=== PATIENT | female | born 1945 | race Caucasian/White ===

== ENCOUNTER 2017-08-11 15:05 | Emergency (ER) | payer OTHER ==
[2017-08-11 15:15] VITALS: BP 223/72; PULSE 80; RESP 20; TEMP 98.1; O2SAT 96
[2017-08-11] MEDS ORDERED: UNKNOWN BP MEDS (15:30)
--- NOTE | 2017-08-11 15:53 | PD ---
HPI Chief Complaint: Fall Time Seen by Provider: 15:40 Travel History International Travel<30 days: No Contact w/Intl Traveler<30days: No Traveled to known affect area: No History of Present Illness HPI This is a 72-year-old female here with multiple injuries after she fell from approximately 3 feet height from her trailer. She reports construction workers moved her front door steps several feet away from her front door. When she attempted to walk outside she fell in the space between the trailer and the steps. She reports she landed onto the steps injuring the left hip, pelvic region, left elbow. There was no loss of consciousness. She is on Plavix. She denies headache, visual changes, neck pain, chest pain, shortness of breath. No paresthesia or weakness of the extremities. Symptom severity is moderate. Exacerbated by weightbearing and range of motion. PFSH Past Medical History Diminished Hearing: No Hypertension: Yes Immunizations Current: No Tetanus Vaccination: > 5 Years Influenza Vaccination: No ?: Not Past Surgical History Abdominal Surgery: Yes (AORTIC ANEURYSM REPAIR ) Cholecystectomy: Yes Hysterectomy: Yes Social History Alcohol Use: No Tobacco Use: No Substance Use: No Allergies-Medications (Allergen,Severity, Reaction): Coded Allergies: Iodinated Contrast- Oral and IV Dye (Verified Allergy, Intermediate, Rash , 08/11/17) codeine (Verified Allergy, Unknown, 08/11/17) Reported Meds & Prescriptions Reported Meds & Active Scripts Active Reported [Unknown Bp Meds] Review of Systems Except as stated in HPI: all other systems reviewed are Neg General / Constitutional: No: Fever Eyes: No: Visual changes HENT: No: Headaches Cardiovascular: No: Chest Pain or Discomfort Respiratory: No: Shortness of Breath Gastrointestinal: No: Abdominal Pain Genitourinary: No: Dysuria Physical Exam Narrative GENERAL: Alert and well-appearing 72-year-old female. Mild distress SKIN: Warm and dry. Ecchymosis and abrasions noted to left lateral hip. HEAD: Atraumatic. Normocephalic. EYES: Pupils equal and round. EOMs intact. No injection or drainage. ENT: No facial trauma. No nasal bleeding or discharge. Mucous membranes pink and moist. NECK: Trachea midline. No cervical midline tenderness. CARDIOVASCULAR: Regular rate and rhythm. No chest wall tenderness. RESPIRATORY: No accessory muscle use. Clear to auscultation. Breath sounds equal bilaterally. Even and equal chest rise. GASTROINTESTINAL: abdomen soft, nondistended/obese abdomen. +TTP bilateral upper quadrants. MUSCULOSKELETAL: Extremities without clubbing, cyanosis, or edema. No obvious deformities. Left upper extremity: +TTP over lateral elbow with ecchymosis and abrasions present. No obvious deformity. Palpable brachial and radial pulse. Full range of motion of the shoulder, wrist and all fingers. Limited range of motion of the elbow due to pain. Normal sensation. Brisk cap refill. Pelvis is stable. Left lower extremity:+TTP left lateral hip with overlying ecchymosis and abrasions. She has pain with hip flexion and external rotation. Normal sensation distally. Palpable DP pulses bilaterally. Brisk cap refill. NEUROLOGICAL: Awake and alert. No obvious cranial nerve deficits. Motor grossly within normal limits. Five out of 5 muscle strength in the arms and legs. Normal speech. BACK: No CVA tenderness. +TTP lumbar spine. PSYCHIATRIC: Appropriate mood and affect; insight and judgment normal. Data Data Last Documented VS Vital Signs Date Time Temp Pulse Resp B/P (MAP) Pulse Ox O2 Delivery O2 Flow Rate FiO2 08/11/17 15:15 98.1 80 20 223/72 (122) [address] Abd/Pel W/O Iv Contrast (08/11/17 15:33) Ct Brain W/O Iv Contrast(Rout) (08/11/17 15:33) Ct Cerv Spine W/O Contrast (08/11/17 15:33) Ct Lumb Spine W/O Contrast (08/11/17 15:33) Elbow, Complete (4 Vws) (08/11/17 ) Oxycodone-Acetamin 5-325 Mg (Percocet (08/11/17 16:30) MDM Medical Decision Making Medical Screen Exam Complete: Yes Emergency Medical Condition: Yes Differential Diagnosis Hip fracture, pelvic fracture, lumbar spine fracture, intra-abdominal trauma, contusions, inguinal strain Narrative Course 72-year-old female here with multiple injuries after she fell from approximately 3 feet. She has a normal neurologic exam. Her extremities are neurovascularly intact. CT the brain: No intracranial abnormality CT cervical spine: No fracture CT abdomen pelvis: Negative trauma study X-ray left elbow: Negative for fracture All findings were discussed with patient and family. She reports symptom improvement after Percocet. Strict return precautions were discussed. Patient was noted to be hypertensive on arrival with a blood pressure of 122/74, she reports she takes clonidine for her blood pressure and did not take her dose this morning. She is denying any headache, visual changes, chest pain, shortness of breath. She declines a dose of clonidine here. She reports she would like to take her blood pressure medication when she gets home. she is stable and ready for discharge. Diagnosis Primary Impression: Multiple contusions Additional Impression: Lumbar strain Qualified Codes: S39.012A - Strain of muscle, fascia and tendon of lower back , initial encounter Referrals: Primary Care Physician Additional Instructions: Medication as directed. Follow-up with your primary doctor. Return to emergency department if you develop new or worsening symptoms as discussed. Scripts Oxycodone-Acetaminophen (Percocet) 5-325 mg Tab 1 TAB PO Q6H Y for PAIN, #12 TAB 0 Refills Prov: Berta Herrmann 08/11/17 Disposition: 01 DISCHARGE HOME Condition: Stable Berta Herrmann August 11, 2017 15:53
--- NOTE | 2017-08-11 16:03 | RADRPT ---
EXAM DATE: 08/11/2017 3:52 PM EDT AGE/SEX: 72 years / Female INDICATIONS: Left elbow pain post fall today CLINICAL DATA: This is the patient's initial encounter. Patient reports that signs and symptoms have been present for 1 day and indicates a pain score of 6/10. MEDICAL/SURGICAL HISTORY: None. None. COMPARISON: No prior [place] exams available for comparison. FINDINGS: Bony structures are intact and in normal alignment. Joints are intact without dislocation or signifi cant arthropathy. Osseous density is normal. Soft tissues are unremarkable. No radiopaque foreign bodies seen. CONCLUSION: Negative trauma study. Electronically signed by: Leo Pickett MD 08/11/2017 4:02 PM EDT
--- NOTE | 2017-08-11 16:11 | PD ---
Data Data Last Documented VS Vital Signs Date Time Temp Pulse Resp B/P (MAP) Pulse Ox O2 Delivery O2 Flow Rate FiO2 08/11/17 18:07 71 17 218/94 (135) 95 Room Air 08/11/17 15:[address] Abd/Pel W/O Iv Contrast (08/11/17 15:33) Ct Brain W/O Iv Contrast(Rout) (08/11/17 15:33) Ct Cerv Spine W/O Contrast (08/11/17 15:33) Ct Lumb Spine W/O Contrast (08/11/17 15:33) Elbow, Complete (4 Vws) (08/11/17 ) Oxycodone-Acetamin 5-325 Mg (Percocet (08/11/17 16:30) MDM Supervised Visit with ROBIN: Yes Narrative Course I, Dr. Kuo, have reviewed the advance practice practitioner's documentation and am in agreement, met with the patient face to face, made the diagnosis, and the medical decision making was done by me. *My assessment and Findings: Patient seen and examined by me in addition to Berta Herrmann, patient does have some bruising over the left hip but no bruising of the abdomen or chest. She presents with bruising over the left hip after a fall about 3 feet from her double wide trailer. States somebody had moved the stairs out of the way in preparation for construction and she did not realize. CT scans have been ordered but her abdomen and chest are benign, she has been ambulatory since the event but states that her right foot had actually remained in the double wide and she did split on her way to the ground and also impact her left elbow. I have ordered Percocet for the patient, anticipate discharge home after imaging obtained. Last 24 [address] Impressions Lum[address] Spine [address] 08/11/17 153 Signed Impressions: CONCLUSION: 1. Negative trauma study. Head CT 08/11/171532 Signed Impressions: CONCLUSION: 1. Negative trauma CT Cervical Spine CT 08/11/171532 Signed Impressions: CONCLUSION: 1. Negative trauma CT. Abdomen/Pelvis CT 08/11/171532 Signed Impressions: CONCLUSION: 1. No evidence of acute visceral injury on this noncontrast study. 2. The bony structures appear intact. 3. Gastric band device in place. 4. Prominent left collecting system similar in appearance to the prior study. Elbow X-Ray 08/11/17 0000 Signed Impressions: CONCLUSION: Negative trauma study. Scripts Oxycodone-Acetaminophen (Percocet) 5-325 mg Tab 1 TAB PO Q6H Y for PAIN, #12 TAB 0 Refills Prov: Berta Herrmann 08/11/17 Maldonado Kuo MD August 11, 2017 16:11
--- NOTE | 2017-08-11 16:18 | RADRPT ---
EXAM DATE: 08/11/2017 4:05 PM EDT AGE/SEX: 72 years / Female INDICATIONS: Trauma, fall. CLINICAL DATA: This is the patient's initial encounter. Patient reports that signs and symptoms have been present for 1 day and indicates a pain score of 8/10. MEDICAL/SURGICAL HISTORY: Hypertension. Aneurysm, abdominal. Abdominal aortic aneurysm repair. Hy sterectomy. Cholecystectomy. RADIATION DOSE: 62.64 CTDI (mGy) ; Patient motion COMPARISON: No prior [place] exams available for comparison. TECHNIQUE: CT of the head without contrast. Using automated exposure control and adjustment of the mA and/or kV according to patient size, radiation dose was kept as low as reasonably achievable to ob tain optimal diagnostic quality images. FINDINGS: There is mild motion artifact. Cerebrum: The ventricles are normal for age. No evidence of midline shift, mass lesion, hemorrhage or acute infarction. No extraaxial fluid collections are seen. Posterior Fossa: The cerebellum and brainstem are intact. The 4th ventricle is midline. The cerebe llopontine angle is unremarkable. Extracranial: The visualized portion of the orbits is intact. Skull: The calvaria is intact. No evidence of skull fracture. CONCLUSION: 1. Negative trauma CT Electronically signed by: Leo Pickett MD 08/11/2017 4:17 PM EDT
--- NOTE | 2017-08-11 16:20 | RADRPT ---
EXAM DATE: 08/11/2017 4:14 PM EDT AGE/SEX: 72 years / Female INDICATIONS: Trauma, fall. CLINICAL DATA: This is the patient's initial encounter. Patient reports that signs and symptoms have been present for 1 day and indicates a pain score of 8/10. MEDICAL/SURGICAL HISTORY: Hypertension. Aneurysm, abdominal. Cholecystectomy. Hysterectomy. Abdominal aortic aneurysm repair. RADIATION DOSE: 25.64 CTDI (mGy) COMPARISON: No prior [place] exams available for comparison. TECHNIQUE: Contiguous axial images were obtained using helical multirow detector technique. The vol umetric data was post-processed with multiplanar reconstruction in oblique axial, sagittal, and coron al planes. Using automated exposure control and adjustment of the mA and/or kV according to patient s ize, radiation dose was kept as low as reasonably achievable to obtain optimal diagnostic quality dione ges. FINDINGS: Vertebrae: Normal vertebral body height. There is mild reversal of the normal cervical lordosis. Alignment: Normal. No subluxation. Axial images demonstrate that the vertebral bodies and posterior elements are intact with no evidence of fracture. CONCLUSION: 1. Negative trauma CT. Electronically signed by: Leo Pickett MD 08/11/2017 4:19 PM EDT
[2017-08-11] MEDS ORDERED: oxyCODONE/ACETAMINOPHEN 5 MG/325 MG TAB PO ONE (16:30)
--- NOTE | 2017-08-11 16:42 | RADRPT ---
EXAM DATE: 08/11/2017 4:22 PM EDT AGE/SEX: 72 years / Female INDICATIONS: Trauma, fall. Low back pain. CLINICAL DATA: This is the patient's initial encounter. Patient reports that signs and symptoms have been present for 1 day and indicates a pain score of 8/10. MEDICAL/SURGICAL HISTORY: Hypertension. Aneurysm, abdominal. Hysterectomy. Cholecystectomy. Abdo davina aortic aneurysm repair. RADIATION DOSE: . CTDI (mGy) ; Reconstructed from previous dataset, no dose COMPARISON: No prior [place] exams available for comparison. TECHNIQUE: Contiguous axial images were acquired with a multirow detector CT scanner without contras t. Multiplanar reconstructions in the sagittal and coronal plane were also performed. Using automate d exposure control and adjustment of the mA and/or kV according to patient size, radiation dose was k ept as low as reasonably achievable to obtain optimal diagnostic quality images. FINDINGS: Vertebrae: Normal vertebral body height. There is a minimal scoliosis. Alignment: There is a minimal grade 1 anterior spondylosis L3. T12-L1: The thecal sac has a normal diameter. No evidence of disc bulge or protrusion. The neural foramina are patent bilaterally. L1-L2: The thecal sac has a normal diameter. No evidence of disc bulge or protrusion. The neural f oramina are patent bilaterally. L2-L3: The thecal sac has a normal diameter. No evidence of disc bulge or protrusion. The neural f oramina are patent bilaterally. L3-L4: The thecal sac has a normal diameter. No evidence of disc bulge or protrusion. The neural f oramina are patent bilaterally. L4-L5: The thecal sac has a normal diameter. There is a mild disc bulge. The neural foramina are pa tent bilaterally. L5-S1: The thecal sac has a normal diameter. No evidence of disc bulge or protrusion. The neural f oramina are patent bilaterally. CONCLUSION: 1. Negative trauma study. Electronically signed by: Leo Pickett MD 08/11/2017 4:40 PM EDT
--- NOTE | 2017-08-11 17:50 | RADRPT ---
EXAM DATE: 08/11/2017 4:12 PM EDT AGE/SEX: 72 years / Female INDICATIONS: Trauma, fall. Low back pain. CLINICAL DATA: This is the patient's initial encounter. Patient reports that signs and symptoms have been present for 1 day and indicates a pain score of 8/10. MEDICAL/SURGICAL HISTORY: Hypertension. Aneurysm, abdominal. Hysterectomy. Cholecystectomy. Abdominal aortic aneurysm repair. RADIATION DOSE: 23.44 CTDI (mGy) COMPARISON: [facility], CT ABDOMEN AND PELVIS W/O CONTRAST, 05/20/2011. . TECHNIQUE: Multiple contiguous axial images were obtained through the abdomen. Images were obtained using multiple row detector helical technique. Using dose reduction techniques, radiation dose was ke pt as low as reasonably achievable to obtain optimal diagnostic quality images. FINDINGS: Lower Lungs: The visualized lower lungs are clear. Liver: The liver has a homogeneous density without space-occupying lesion. There is no dilation of th e biliary tree. Status post cholecystectomy. Spleen: Homogeneous density without enlargement. Pancreas: Unremarkable without mass or calcification. Kidneys: Normal in size and shape. A prominent left collecting system is again noted with a small 1 mm calcification now noted on axial image #27. This measures 1 cm. The ureters are unremarkable. No e vidence of mass or hydronephrosis. Adrenal Glands: Unremarkable. Aorta: Postsurgical changes are noted status post aortic bypass procedure. Bowel/Mesentery: No oral contrast was given limiting the sensitivity. There is a gastric band device in place. The bowel loops are grossly unremarkable. The cecum and sigmoid colon have a normal configu ration. Abdominal Wall: Intact. Retroperitoneum: No evidence of adenopathy in the retrocrural, para-aortic, or deep pelvic regions. Bladder: Contours are smooth. Reproductive Organs: No abnormal masses or calcifications seen. Inguinal: The inguinal region is unremarkable without evidence of adenopathy. Bony Structures: Unremarkable. CONCLUSION: 1. No evidence of acute visceral injury on this noncontrast study. 2. The bony structures appear intact. 3. Gastric band device in place. 4. Prominent left collecting system similar in appearance to the prior study. Electronically signed by: Leo Pickett MD 08/11/2017 5:49 PM EDT
[2017-08-11] MEDS ORDERED: PERC5TAB12 PO (18:06)
[2017-08-11 18:07] VITALS: BP 218/94; PULSE 71; RESP 17; O2SAT 95
== END 2017-08-11 18:13 | disposition home or self-care (01) ==
LOC: PHEFT 15:05
DX: S70.02XA Contusion of left hip, initial encounter (principal); S39.012A Strain of muscle, fascia and tendon of lower back, initial encounter; I10 Essential (primary) hypertension; W10.9XXA Fall (on) (from) unspecified stairs and steps, initial encounter; Y92.029 Unspecified place in mobile home as the place of occurrence of the external cause; Z79.02 Long term (current) use of antithrombotics/antiplatelets
CPT/HCPCS: 70450; 72125; 72131; 73080; 74176; 99284

== ENCOUNTER 2018-02-06 01:11 | Inpatient (IN) ==
[2018-02-06] MEDS ORDERED: Heparin 10,000 UNITS/10 ML Vial (for IV use) IV.PUSH STA (01:17)
[2018-02-06 01:45] LABS: Baso # (Auto) 0.1 th/mm3 (0.0-0.2); Baso % (Auto) 0.7 % (0.0-2.0); Eos # (Auto) 0.1 th/mm3 (0.0-0.4); Eos % (Auto) 1.4 % (0.0-4.0); Hematocrit 34.4 % (35.0-46.0); Lymph # (Auto) 2.2 th/mm3 (1.0-4.8); Lymph % (Auto) 26.9 % (9.0-44.0); Mean Corpuscular Hemoglobin 32.3 pg (27.0-34.0); Mean Corpuscular Volume 92.1 fL (80.0-100.0); Mean Platelet Volume 9.2 fL (7.0-11.0); Mono # (Auto) 0.6 th/mm3 (0.0-0.9); Mono % (Auto) 7.4 % (0.0-8.0); Neut # (Auto) 5.1 th/mm3 (1.8-7.7); Neut % (Auto) 63.6 % (16.0-70.0); Platelet Count 165 th/mm3 (150-450); Red Blood Count 3.73 mil/mm3 (4.00-5.30)
--- NOTE | 2018-02-06 01:46 | XR ---
EXAM DATE: 02/06/2018 1:42 AM EST AGE/SEX: 72 years / Female INDICATIONS: Chest pain. Shortness of breath. CLINICAL DATA: This is the patient's initial encounter. Patient reports that signs and symptoms have been present for 1 day and indicates a pain score of 8/10. MEDICAL/SURGICAL HISTORY: . Hypertension. Aneurysm, abdominal. COPD. . Hysterectomy. Cholecyst ectomy. Abdominal aortic aneurysm repair. COMPARISON: No prior exams available for comparison. FINDINGS: A single AP view of the chest demonstrates the lungs to be symmetrically aerated without evidence of mass, infiltrate or effusion. Minimal basilar atelectasis. The cardiomediastinal contours are unrema rkable. Osseous structures are intact. CONCLUSION: Minimal basilar atelectasis. Electronically signed by: José Luis Taylor MD 02/06/2018 1:44 AM EST
[2018-02-06 01:52] LABS: Activated Partial Thrombo Time 27.3 sec (23.4-31.7); Prothrombin Time 10.2 sec (9.8-11.6)
[2018-02-06 01:56] LABS: Alanine Aminotransferase 20 U/L (10-53); Albumin 3.6 g/dL (3.4-5.0); Anion Gap 8 meq/L (5-15); Aspartate Aminotransferase 18 U/L (15-37); Blood Urea Nitrogen 30 mg/dL (7-18); Calcium 8.5 mg/dL (8.5-10.1); Carbon Dioxide 24.8 meq/L (21.0-32.0); Chloride 108 meq/L (98-107); Glomerular Filtration Rate 29 mL/min (>89); Glucose,Random 206 mg/dL (74-106); Potassium 3.5 meq/L (3.5-5.1); Sodium 141 meq/L (136-145)
[2018-02-06 02:00] LABS: Alkaline Phosphatase 90 U/L (45-117)
--- NOTE | 2018-02-06 03:14 | ED ---
HPI General Chief Complaint: Chest Pain Stated Complaint: cardiac complaint Time Seen by Provider: 02/06/18 01:17 Source: patient Mode of arrival: EMS Limitations: no limitations History of Present Illness HPI narrative: 72-year-old female came to the emergency room with history of sudden onset of chest pain at 10:30 PM last night. Patient says that she was sitting by her computer when the pain started. She describes the pain as a burning sensation across her chest in the middle. There was no associated shortness of breath, dizziness or shortness of breath. She got up to go to the restroom when the pain started going down her both upper extremities. She checked her blood pressure and it was in 160s-170s. Patient took 2 of her clonidine pills. The pain did not subside and she eventually called 911. When EMS arrived they found her in A. fib with RVR. Patient does not have a history of A. fib. There twelve-lead showed questionable ST elevation. Patient was given 20 mg of Cardizem by EMS. This brought her heart rate down to 100s. Upon arrival patient said that her chest pain was down from 9 to a 3 at this point. Upon arrival her blood pressure was 114/66. Patient says that her ehs manager is Dr. Simmons and she has been told that she has coronary artery disease but she does not have any stents. Her daughter came a few minutes later and confirmed this history. Patient is on Plavix for unknown reason. She has had an abdominal aneurysm repair a few years ago. Related Data Home Medications Medication Instructions Recorded Confirmed Plavix 02/06/18 Allergies Allergy/AdvReac Type Severity Reaction Status Date / Time Iodinated Contrast- Oral and Allergy Intermediate Rash Verified 08/11/17 15:41 IV Dye codeine Allergy Unknown Verified 08/11/17 15:28 Review of Systems ROS: all other systems reviewed are negative [facility] [place] Medical History Medical History Coronary artery disease (Acute) Diabetes (Acute) Hypertension (Acute) Surgical History Surgical History History of AAA (abdominal aortic aneurysm) repair (Acute) Social History Social History Substance History: No History of Abuse Second Hand Smoke Exposure: No Smoking Status: Former smoker Tobacco Type: Cigarettes How Often Do You Have a Drink Containing Alcohol: Monthly or less Immunization History Tetanus Immunization: >5 Years Exam Narrative Exam Narrative: GENERAL: Awake, alert, anxious, moderate distress SKIN: Focused skin assessment warm/dry. HEAD: Atraumatic. Normocephalic. EYES: Pupils equal and round. No scleral icterus. No injection or drainage. ENT: No nasal bleeding or discharge. Mucous membranes pink and moist. NECK: Trachea midline. No JVD. CARDIOVASCULAR: Irregularly irregular rhythm. Tachycardia. No murmur appreciated. RESPIRATORY: No accessory muscle use. Clear to auscultation. Breath sounds equal bilaterally. GASTROINTESTINAL: Abdomen soft, non-tender, nondistended. Hepatic and splenic margins not palpable. MUSCULOSKELETAL: No obvious deformities. No clubbing. No cyanosis. No edema. NEUROLOGICAL: Awake and alert. No obvious cranial nerve deficits. Motor grossly within normal limits. Normal speech. PSYCHIATRIC: Appropriate mood and affect; insight and judgment normal. Course Initial Documented Vital Signs Pulse Rate 84 02/06/18 01:13 Respiratory Rate 20 02/06/18 01:13 Pulse Oximetry 95 02/06/18 01:13 Last Documented Vital Signs Pulse Rate 85 02/06/18 01:19 Respiratory Rate 20 02/06/18 02:56 Blood Pressure 136/84 02/06/18 02:56 Pulse Oximetry 97 02/06/18 02:56 Critical Care Time Critical Care Time: Yes Total Critical Care Time: 30 Attestation: Aggregate critical care time was 30 minutes. Time to perform other separately billable procedures was not included in the critical care time. My time did not include minutes spent treating any other patients simultaneously or on activities that did not directly contribute to the patient's treatment. The services I provided to this patient were to treat and/or prevent clinically significant deterioration that could result in: New onset A. fib, rate related ischemic changes on EKG, heparin bolus and drip, Cardizem bolus and drip I provided critical care services requiring my management, as noted below: Chart data review, documentation time, medication orders and management, vital sign assessments/reviewing monitor data, ordering and reviewing lab tests, ordering and interpreting/reviewing x-rays and diagnostic studies, care of the patient and discussion of the patient with the admitting physicians. Medical Decision Making MDM Narrative Medical decision making narrative: 3:12 AM the twelve-lead done in the emergency department compared to the one done by EMS showed significant improvement of the RVR along with ST depression improvement. I discussed the case soon after patient's arrival with her ehs manager Dr. Simmons over the phone. He wanted the patient to be medically admitted and him consulted in the morning. Blood test results are back and within acceptable limit. Chest x-ray is negative. Patient has been started on a Cardizem drip. She will be admitted. Medical Screen Exam Complete: Yes Emergency Medical Condition: Yes Lab Data Result diagrams: 02/06/18 01:20 02/06/18 01:20 Lab Results 02/06/18 02/06/18 02/06/18 Range/Units 01:20 01:20 01:20 WBC 8.0 (4.0-11.0) th/mm3 RBC 3.73 L (4.00-5.30) mil/mm3 Hgb 12.0 (11.6-15.3) gm/dL Hct 34.4 L (35.0-46.0) % MCV 92.1 (80.0-100.0) fL MCH 32.3 (27.0-34.0) pg MCHC 35.0 (32.0-36.0) % RDW 13.0 (11.6-17.2) % Plt Count 165 (150-450) th/mm3 MPV 9.2 (7.0-11.0) fL Neut % (Auto) 63.6 (16.0-70.0) % Lymph % (Auto) 26.9 (9.0-44.0) % [place] % (Auto) 7.4 (0.0-8.0) % Eos % (Auto) 1.4 (0.0-4.0) % Baso % (Auto) 0.7 (0.0-2.0) % Neut # (Auto) 5.1 (1.8-7.7) th/mm3 Lymph # (Auto) 2.2 (1.0-4.8) th/mm3 [place] # (Auto) 0.6 (0.0-0.9) th/mm3 Eos # (Auto) 0.1 (0.0-0.4) th/mm3 Baso # (Auto) 0.1 (0.0-0.2) th/mm3 WBC Differential . Differential Comment Auto diff final PT 10.2 (9.8-11.6) sec INR 1.0 Ratio APTT 27.3 (23.4-31.7) sec Sodium 141 (136-145) meq/L Potassium 3.5 (3.5-5.1) meq/L Chloride 108 H (98-107) meq/L Carbon Dioxide 24.8 (21.0-32.0) meq/L Anion Gap 8 (5-15) meq/L BUN 30 H (7-18) mg/dL Creatinine 1.74 H (0.50-1.00) mg/dL Estimated GFR 29 L (>89) mL/min Random Glucose 206 H (74-106) mg/dL Calcium 8.5 (8.5-10.1) mg/dL Total Bilirubin 0.2 (0.2-1.0) mg/dL AST 18 (15-37) U/L ALT 20 (10-53) U/L Alkaline Phosphatase 90 (45-117) U/L Troponin I Less than 0.02 L (0.02-0.05) ng/mL Total Protein 7.0 (6.4-8.2) g/dL Albumin 3.6 (3.4-5.0) g/dL Imaging Data Radiologist's impression: Chest X-Ray 02/06/18 01:18 CONCLUSION: Minimal basilar atelectasis. ECG Data Attestation: I personally reviewed and interpreted this ECG as follows: Interpretation: Twelve-lead EKG was reviewed by me. [place]intero fib, normal axis, ST depressions lateral lead, old anterior GA. Heart rate of 99 bpm. Discharge Plan Discharge Disposition Patient Disposition: 30 Still Patient Physicians Team ED Provider: Dustin Higuera Primary Care Provider: Shannan Acosta Rxs /Orders / Referrals /Forms Prescriptions: No Action Plavix RF: 0 Discharge Instructions Patient Printed Instructions: Chest Pain (ED) Discharge Interventions Interventions: Vital Signs Last Done: 02/06/18 01:19 Status ED Status: With Doctor
[2018-02-06] MEDS ORDERED: Bisacodyl 10 MG Supp RECTAL PRN (03:16)
[2018-02-06] MEDS ORDERED: dilTIAZem Inj 125 MG in Sodium Chlor 0.9% Inj 100 ML IV.CONT PRN (03:36)
[2018-02-06] MEDS ORDERED: Dextrose 50% in Water 50 ML Vial IV.PUSH PRN (03:59)
--- NOTE | 2018-02-06 04:08 | P.HPIM ---
History of Present Illness Primary Care Physician: Shannan Acosta MD History of Present Illness: This is a 72-year-old female with a PMH of HTN, CAD and DM who was brought to the ER by EMS for c/o chest pain. Pt states she was sitting at her computer playing Solitaire when she got acute onset of severe burning chest pain, 10/10, w/ radiation to left arm. States she took her BP which was elevated 170/110 and took Clonidine x2 in addition to NTG w/ minimal improvement. Upon EMS arrival, pt noted to be in A-fib w/ RVR, HR 155, s/p Cardizem 20mg IV x1. Pt denies previous h/o A-fib. BP 114/66, HR 85, O2 sat 95% on 2 NC, Afebrile. CBC unremarkable. INR 1.0. Creatinine 1.74, no previous labs for comparison. Troponin negative. CXR with minimal basilar atelectasis. Follows w/ Dr. Simmons as outpatient, consulted by ER physician, damian mathis in am. Currently on Heparin gtt, chest pain significantly improved. - Diagnosis (1) Afib (2) ACS (acute coronary syndrome) (3) Renal insufficiency (4) DM (diabetes mellitus) Inpatient Certification: I certify that the inpatient services were ordered in accordance with Medicare regulations governing the order. This includes certification that hospital inpatient services are reasonable and necessary and in the case of services not specified as inpatient-only under 42 CFR 419.22(n), that they are appropriately provided as inpatient services in accordance to with the 2-midnight benchmark under 43 CFR 412.3(e) Estimated Total Length of Stay (Days): 2 Plans for Post Hospital Care: Not yet determined Review of Systems PAST FAMILY HISTORY: Reviewed. No h/o DM or CAD All other systems reviewed negative except as stated in HPI PMFSH - History History Provided By: Patient - Medical History Medical History: Medical History (Last Reviewed 02/06/18 @ 03:11 by Dustin Higuera MD) Coronary artery disease Diabetes Hypertension - Surgical History Surgical History: Surgical History (Last Reviewed 02/06/18 @ 03:11 by Dustin Higuera MD) History of AAA (abdominal aortic aneurysm) repair - Tobacco History Second Hand Smoke Exposure: No Tobacco Use In Past 30 Days: No Smoking Status: Former smoker Tobacco Type: Cigarettes - Alcohol History How Often Do You Have a Drink Containing Alcohol: Monthly or less - Substance Use History Substance History: No History of Abuse - Immunization History Tetanus Immunization: >5 Years Medications and Allergies Active Medications: Active Medications Acetaminophen (Tylenol) 650 mg PO Q4H PRN PRN Reason: Temp > 100.4 Al Hydroxide/Mg Hydroxide (Milk Of Magnesia Liq) 30 ml PO Q12H PRN PRN Reason: Mild Constipation Aspirin (Ecotrin) 81 mg PO DAILY [facility] Bisacodyl (Dulcolax Supp) 10 mg RECTAL DAILY PRN PRN Reason: SEVERE CONSITIPATION Sodium Chloride (Ns Inj) 1,000 mls @ 100 mls/hr IV.CONT .Q10H [facility] Diltiazem HCl 125 mg/ Sodium (Chloride) 125 mls @ 5 mls/hr IV.CONT TITRATE PRN ; Protocol PRN Reason: Per Protocol Lactulose (Lactulose Liq) 30 ml PO DAILY PRN PRN Reason: SEVERE CONSITIPATION Metoprolol Tartrate (Lopressor) 12.5 mg PO BID [facility] Miscellaneous (Pill Splitter) 1 each OTHER UNSCH PRN PRN Reason: SEE LABEL COMMENTS Morphine Sulfate (Morphine Inj) 2 mg IV.PUSH Q4H PRN PRN Reason: PAIN 6-10 Nitroglycerin (Nitro-Bid 2% Oint) 0.5 inch TOPICAL Q6HR PRN PRN Reason: CHEST PAIN Ondansetron HCl (Zofran Inj) 4 mg IV.PUSH Q6H PRN PRN Reason: NAUSEA OR VOMITING Pravastatin Sodium (Pravachol) 40 mg PO DAILY [facility] Senna/Docusate Sodium (Shu-Colace) 1 tab PO BID [facility] Sennosides (Senokot) 17.2 mg PO Q12H PRN PRN Reason: Moderate Constipation Sodium Chloride (Ns Flush) 2 ml IV.FLUSH UNSCH PRN PRN Reason: FLUSH AFTER USING IV ACCESS Allergies Allergy/AdvReac Type Severity Reaction Status Date / Time Iodinated Contrast- Oral and Allergy Intermediate Rash Verified 08/11/17 15:41 IV Dye codeine Allergy Unknown Verified 08/11/17 15:28 Home Medications Medication Instructions Recorded Confirmed Type Plavix 02/06/18 History Exam Vital signs: Vital Signs 02/06/18 01:13 02/06/18 01:19 02/06/18 02:56 Pulse Rate 84 85 Respiratory Rate 20 20 20 Blood Pressure 114/66 136/84 Pulse Oximetry 95 95 97 Intake & Output 02/05/18 02/05/18 02/06/18 06:59 18:59 06:59 Weight 98.883 kg Narrative: PE: GENERAL: Very pleasant middle-aged white female in no acute distress. SKIN: Focused skin assessment warm and dry. HEENT: PERRLA, EOMI. No scleral icterus or conjunctival pallor. No lid lag or facial droop. CARDIOVASCULAR: Irregularly irregular, in A. fib, HR 90s. No obvious murmurs to auscultation. No chest tenderness to palpation. RESPIRATORY: No obvious rhonchi or wheezing. Clear to auscultation. Breath sounds equal bilaterally. GASTROINTESTINAL: Abdomen soft, non-tender, nondistended. BS normal. MUSCULOSKELETAL: Extremities without clubbing, cyanosis, or edema. No obvious deformities. NEUROLOGICAL: Awake, alert and oriented x4. No focal neurologic deficits. Moving both upper and lower extremities spontaneously. PSYCHIATRIC: Appropriate mood and affect. Insight and judgment normal. Results - Labs CBC & Chem 7: 02/06/18 01:20 02/06/18 01:20 Labs: Short CBC 02/06/18 Range/Units 01:20 WBC 8.0 (4.0-11.0) th/mm3 Hgb 12.0 (11.6-15.3) gm/dL Hct 34.4 L (35.0-46.0) % Plt Count 165 (150-450) th/mm3 BMP 02/06/18 01:20 Sodium 141 Potassium 3.5 Chloride 108 H Carbon Dioxide 24.8 BUN 30 H Creatinine 1.74 H Calcium 8.5 Cardiac Enzymes 02/06/18 Range/Units 01:20 Troponin I Less than 0.02 L (0.02-0.05) ng/mL Liver Function 02/06/18 Range/Units 01:20 Total Bilirubin 0.2 (0.2-1.0) mg/dL AST 18 (15-37) U/L ALT 20 (10-53) U/L Alkaline Phosphatase 90 (45-117) U/L Albumin 3.6 (3.4-5.0) g/dL - Imaging Impressions Chest X-Ray 02/06/18 01:18 CONCLUSION: Minimal basilar atelectasis. Caprini VTE Risk Assessment Caprini VTE Risk Assessment: No/Low Risk (score <= 1) Caprini Risk Assessment Model: Point Value = 1 Point Value = 2 Point Value = 3 Point Value = 5 Age 41-60 Minor surgery BMI > 25 kg/m2 Swollen legs Varicose veins or History of unexplained or recurrent spontaneous Oral contraceptives or hormone replacement Sepsis (< 1 month) Serious lung disease, including pneumonia (< 1 month) Abnormal pulmonary function Acute myocardial infarction Congestive heart failure (< 1 month) History of inflammatory bowel disease Medical patient at bed rest Age 61-74 Arthroscopic surgery Major open surgery (> 45 min) Laparoscopic surgery (> 45 min) Malignancy Confined to bed (> 72 hours) Immobilizing plaster cast Central venous access Age >= 75 History of VTE Family history of VTE Factor V Leiden Prothrombin [id number] Lupus anticoagulant Anticardiolipin antibodies Elevated serum homocysteine Heparin-induced thrombocytopenia Other congenital or acquired thrombophilia Stroke (< 1 month) Elective arthroplasty Hip, pelvis, or leg fracture Acute spinal cord injury (< 1 month) Prophylaxis Regimen: Total Risk Factor Score Risk Level Prophylaxis Regimen 0-1 Low Early ambulation 2 Moderate Order ONE of the following: *Sequential Compression Device (SCD) *Heparin 5000 units SQ BID 3-4 Higher Order ONE of the following medications: *Heparin 5000 units SQ TID *Enoxaparin/Lovenox 40 mg SQ daily (WT < 150 kg, CrCl > 30 mL/min) *Enoxaparin/Lovenox 30 mg SQ daily (WT < 150 kg, CrCl > 10-29 mL/min) *Enoxaparin/Lovenox 30 mg SQ BID (WT < 150 kg, CrCl > 30 mL/min) AND/OR *Sequential Compression Device (SCD) 5 or more Highest Order ONE of the following medications: *Heparin 5000 units SQ TID (Preferred with Epidurals) *Enoxaparin/Lovenox 40 mg SQ daily (WT < 150 kg, CrCl > 30 mL/min) *Enoxaparin/Lovenox 30 mg SQ daily (WT < 150 kg, CrCl > 10-29 mL/min) *Enoxaparin/Lovenox 30 mg SQ BID (WT < 150 kg, CrCl > 30 mL/min) AND *Sequential Compression Device (SCD) Assessment and Plan - Assessment (1) Afib Code(s): I48.91 - Unspecified atrial fibrillation Status: Acute (2) ACS (acute coronary syndrome) Code(s): I24.9 - Acute ischemic heart disease, unspecified Status: Acute (3) Renal insufficiency Code(s): N28.9 - Disorder of kidney and ureter, unspecified Status: Acute (4) DM (diabetes mellitus) Code(s): E11.9 - Type 2 diabetes mellitus without complications Status: Acute - Plan A/P: 1. ACS: acute onset of burning, substernal chest pain at rest w/ radiation to LUE, concern for ACS. Initial trop negative, EKG w/ some ST depressions likely rate-related. Admit to [facility], telemetry, check serial cardiac enzymes for trend. NTG/Morphine prn, ASA, Statin, B-mary beth. Heparin gtt. 2. A-fib: w/ RVR, New-Onset, s/p Cardizem 20mg IV x1 by EMS w/ HR now 80-90' s. Metoprolol, Cardizem gtt if recurrent RVR, Heparin gtt, check Echo to eval for valvular abnormality/cardiomyopathy. 3. Renal Insufficiency: Creatinine 1.74, no previous labs for comparison, IVF for hydration, check U/a to eval for UTI, monitor I/O, repeat labs in am. 4. DM: Sliding scale w/ Accu-Cheks. Check Hgb A1c 5. DVT Prophylaxis: Heparin gtt 6. Social work for d/c planning as needed. 7. Case discussed w/ ER physician at length, labs/records/imaging reviewed by me.
[2018-02-06] MEDS ORDERED: Heparin Drip 25,000 UNIT/250 ML BAG IV.CONT PRN (04:43)
[2018-02-06] MEDS: Sod Chloride 0.9% Inj 1,000 ML IV.CONT SCH ×3 (05:17→23:34)
[2018-02-06] MEDS: Acetaminophen 325 MG Tablet PO PRN ×3 (05:17→20:42)
[2018-02-06] MEDS: Insulin NovoLOG Aspart Correctional Sugar Inj SQ SCH ×4 (08:26→21:59)
[2018-02-06] MEDS: Senna/Docusate Sodium 8.6/50 MG Tablet PO SCH ×2 (08:35→21:59)
[2018-02-06] MEDS: Metoprolol Tartrate 25 MG Tablet PO SCH ×2 (08:35→20:42)
[2018-02-06 08:53] LABS: Bacteria,Urine Moderate /hpf; Bilirubin,Urine Negative (Negative); Clarity,Urine Hazy (Clear); Color,Urine Yellow (Yellw/Straw); Glucose,Urine (UA) Negative (Negative); Leukocyte Esterase,Urine Trace (Negative); Mucus,Urine Few /lpf (Occasional); Nitrite,Urine Negative (Negative); Specific Gravity,Urine 1.009 (1.002-1.035); Squamous Epithelial Cell,Urine 8 /hpf (0-5)
--- NOTE | 2018-02-06 10:39 | P.CONCA ---
History of Present Illness Service: Cardiology Primary Care Provider: Shannan Acosta MD Chief Complaint: chest pain AF History of Present Illness: Patient seen examined consult dictated. Patient is well known to me admitted last night with rapid AF new onset. Chest pain ECG changes neg first Trop PMFSH - History History Provided By: Patient - Medical History Medical History: Medical History (Last Reviewed 02/06/18 @ 03:11 by Dustin Higuera MD) Coronary artery disease Diabetes Hypertension - Surgical History Surgical History: Surgical History (Last Reviewed 02/06/18 @ 03:11 by Dustin Higuera MD) History of AAA (abdominal aortic aneurysm) repair - Tobacco History Second Hand Smoke Exposure: No Tobacco Use In Past 30 Days: No Smoking Status: Former smoker Tobacco Type: Cigarettes - Alcohol History How Often Do You Have a Drink Containing Alcohol: Monthly or less - Substance Use History Substance History: No History of Abuse - Immunization History Tetanus Immunization: >5 Years Medications and Allergies Active Medications: Active Medications Acetaminophen (Tylenol) 650 mg PO Q4H PRN PRN Reason: Temp > 100.4 Last Admin: 02/06/18 05:17 Dose: 650 mg Al Hydroxide/Mg Hydroxide (Milk Of Francesco Clifton) 30 ml PO Q12H PRN PRN Reason: Mild Constipation Amiodarone HCl (Cordarone) 200 mg PO Q12HR [facility] Aspirin (Ecotrin) 81 mg PO DAILY [facility] Last Admin: 02/06/18 08:35 Dose: 81 mg Bisacodyl (Dulcolax Supp) 10 mg RECTAL DAILY PRN PRN Reason: SEVERE CONSITIPATION Dextrose (D50w Vial) 50 ml IV.PUSH UNSCH PRN PRN Reason: PER HYPOGLYCEMIA PROTOCOL Glucagon (Glucagon Inj) 1 mg OTHER PRN PRN PRN Reason: for Hypoglycemia Protocol Sodium Chloride (Ns Inj) 1,000 mls @ 100 mls/hr IV.CONT .Q10H [facility] Last Admin: 02/06/18 05:17 Dose: 100 mls/hr Diltiazem HCl 125 mg/ Sodium (Chloride) 125 mls @ 5 mls/hr IV.CONT TITRATE PRN ; Protocol PRN Reason: Per Protocol Last Titration: 02/06/18 05:32 Dose: 15 mg/hr, 15 mls/hr Heparin Sodium/Dextrose (Heparin/D5w 25,000 U/250 Ml) 25,000 unit in 250 mls @ 0 mls/hr IV.CONT TITRATE PRN; Protocol PRN Reason: Per Protocol Last Admin: 02/06/18 05:14 Dose: 1,000 units/hr, 10 mls/hr Insulin Aspart (Novolog Insulin Correctional Sugar Inj) 0 unit SQ ACHS [facility]; Protocol Last Admin: 02/06/18 08:26 Dose: Not Given Lactulose (Lactulose Liq) 30 ml PO DAILY PRN PRN Reason: SEVERE CONSITIPATION Metoprolol Tartrate (Lopressor) 12.5 mg PO BID [facility] Last Admin: 02/06/18 08:35 Dose: 12.5 mg Miscellaneous (Pill Splitter) 1 each OTHER UNSCH PRN PRN Reason: SEE LABEL COMMENTS Morphine Sulfate (Morphine Inj) 2 mg IV.PUSH Q4H PRN PRN Reason: PAIN 6-10 Nitroglycerin (Nitro-Bid 2% Oint) 0.5 inch TOPICAL Q6HR PRN PRN Reason: CHEST PAIN Ondansetron HCl (Zofran Inj) 4 mg IV.PUSH Q6H PRN PRN Reason: NAUSEA OR VOMITING Pravastatin Sodium (Pravachol) 40 mg PO DAILY [facility] Last Admin: 02/06/18 08:35 Dose: 40 mg Senna/Docusate Sodium (Shu-Colace) 1 tab PO BID [facility] Last Admin: 02/06/18 08:35 Dose: 1 tab Sennosides (Senokot) 17.2 mg PO Q12H PRN PRN Reason: Moderate Constipation Sodium Chloride (Ns Flush) 2 ml IV.FLUSH UNSCH PRN PRN Reason: FLUSH AFTER USING IV ACCESS Allergies Allergy/AdvReac Type Severity Reaction Status Date / Time Iodinated Contrast- Oral and Allergy Intermediate Rash Verified 08/11/17 15:41 IV Dye codeine Allergy Unknown Verified 08/11/17 15:28 Home Medications Medication Instructions Recorded Confirmed Type Plavix 75 mg PO DAILY 02/06/18 02/06/18 History Exam Vital signs: Vital Signs 02/06/18 01:13 02/06/18 01:19 02/06/18 02:56 Pulse Rate 84 85 Respiratory Rate 20 20 20 Blood Pressure 114/66 136/84 Pulse Oximetry 95 95 97 02/06/18 05:28 02/06/18 07:56 Pulse Rate 130 H 73 Respiratory Rate 18 18 Blood Pressure 113/57 L 161/68 H Pulse Oximetry 95 Intake & Output 02/05/18 02/06/18 02/06/18 18:59 06:59 18:59 Output Total 300 / 300 Balance -300 / -300 Weight 98.883 kg Output: Urine 300 / 300 Narrative: PERRLA No JVD Systolic murmur no S# Reg Rhythm Obese Decreased peripheral pulses Neruo intact Results 02/06/18 01:20 02/06/18 01:20 Cardiac Enzymes 02/06/18 02/06/18 Range/Units 01:20 08:45 AST 18 (15-37) U/L Troponin I Less than 0.02 L 0.38 H D (0.02-0.05) ng/mL Coagulation 02/06/18 Range/Units 01:20 PT 10.2 (9.8-11.6) sec APTT 27.3 (23.4-31.7) sec CBC 02/06/18 Range/Units 01:20 WBC 8.0 (4.0-11.0) th/mm3 RBC 3.73 L (4.00-5.30) mil/mm3 Hgb 12.0 (11.6-15.3) gm/dL Hct 34.4 L (35.0-46.0) % Plt Count 165 (150-450) th/mm3 Neut # (Auto) 5.1 (1.8-7.7) th/mm3 Lymph # (Auto) 2.2 (1.0-4.8) th/mm3 [place] # (Auto) 0.6 (0.0-0.9) th/mm3 Eos # (Auto) 0.1 (0.0-0.4) th/mm3 Baso # (Auto) 0.1 (0.0-0.2) th/mm3 Comprehensive Metabolic Panel 02/06/18 Range/Units 01:20 Sodium 141 (136-145) meq/L Potassium 3.5 (3.5-5.1) meq/L Chloride 108 H (98-107) meq/L Carbon Dioxide 24.8 (21.0-32.0) meq/L BUN 30 H (7-18) mg/dL Creatinine 1.74 H (0.50-1.00) mg/dL Calcium 8.5 (8.5-10.1) mg/dL AST 18 (15-37) U/L ALT 20 (10-53) U/L Alkaline Phosphatase 90 (45-117) U/L Total Protein 7.0 (6.4-8.2) g/dL Albumin 3.6 (3.4-5.0) g/dL Intake and Output 02/05/18 02/06/18 02/06/18 22:59 06:59 14:59 Output Total 300 / 300 Balance -300 / -300 Output: Urine 300 / 300 Other: Weight 98.883 kg - Imaging and Cardiology Imaging: Impressions Chest X-Ray 02/06/18 01:18 CONCLUSION: Minimal basilar atelectasis. Assessment and Plan - Assessment (1) Afib Code(s): I48.91 - Unspecified atrial fibrillation Status: Acute - Plan Start Amiodarone and Eliquis stop Diltiazem and heparin plan discharge tomorrow.
--- NOTE | 2018-02-06 13:46 | ECG ---
Date Performed: 02/06/2018 Time Performed: 01:14:11 PTAGE: 72 years EKG: ATRIAL FIBRILLATION NONSPECIFIC ST & T-WAVE ABNORMALITY ABNORMAL ECG NO PREVIOUS TRACING DOCTOR: Sanjay Whitney Interpretating Date/Time 02/06/2018 13:44:08
--- NOTE | 2018-02-06 14:36 | MB ---
cc: Marshall Simmons MD DATE: 02/06/2018 CONSULTING PHYSICIAN: Marshall Simmons MD REQUESTING PHYSICIAN: Dustni Higuera MD CHIEF COMPLAINT: Chest pain, atrial fibrillation. ASSESSMENT AND PLAN: 1. Atrial fibrillation with rapid ventricular response. 2. Unstable angina secondary to atrial fibrillation. 3. Atherosclerotic heart disease with positive PET stress earlier this year. 4. Peripheral vascular disease, status post carotid endarterectomy cerebrovascular and peripheral vascular. 5. Chronic renal insufficiency, EGFR around 30.(Dr Garcia) 6. History of hypertension. 7. Mild anemia. Troponins now normal. 8. Type 2 Diabetes Mellitus(Dr Boone PCP) RECOMMENDATIONS: Discontinue IV diltiazem, start Amiodarone 200 mg every 12 hours. Start Eliquis 2.5 mg every 12 hours. Discontinue heparin. Plan for discharge tomorrow. SUBJECTIVE: Ms. Vasquez is well known to me. She is a 72-year-old white female with hypertension, peripheral vascular disease, cerebrovascular disease, coronary artery disease, last catheterization in 2005, a positive PET stress in the apex with normal LV function, who was admitted last night with rapid atrial fibrillation and burning substernal chest pain. Initial troponin was 0.38, second was 0.02. Creatinine is 1.7 with an EGFR of 29. She was last seen in our office on 01/04/2018, did have reports of mild chest pressure at that time, fatigue, and she had sustained a recent fall. MEDICATIONS: Her medications at that time were: 1. Nifedipine 30 mg daily. 2. Isosorbide 60 mg twice daily. 3. Ranitidine 150 mg a day. 4. Xanax 0.25 mg once a day. 5. Triamterene/hydrochlorothiazide 75/50 once a day. 6. Sertraline 25 mg once a day. 7. Rosuvastatin 5 mg once a day. 8. Naproxen sodium 500 mg as needed. This was cautioned at that time. 9. Lasix 20 mg a day. 10. Lantus insulin 100 units a day. 11. Hydralazine 100 mg twice a day. 12. Gabapentin 100 mg 3 capsules at night 13. Clopidogrel 75 mg a day. 14. Clonidine 0.1 mg p.r.n. 15. Cilostazol 100 mg twice a day. 16. Carvedilol 12.5 mg twice a day. 17. Albuterol as needed. PAST MEDICAL HISTORY: Remarkable for COPD, insulin-dependent diabetes mellitus, hyperlipidemia, chronic kidney disease, obesity. She has had an appendectomy, hysterectomy. She has a small aneurysm and severe peripheral vascular disease. REVIEW OF SYSTEMS: GASTROINTESTINAL: No hematemesis, melena per rectum. She had been well since her admission last night. RESPIRATORY: Asthma as above. NEUROLOGIC: No TIA, stroke, epilepsy. She does have a history of bilateral carotid disease. PHYSICAL EXAMINATION. VITAL SIGNS: Blood pressure 113/57, pulse 75. HEENT: Pupils are equal. Sclerae are clear. NECK: Veins are not distended. Carotids have bilateral bruits. LUNGS: Chest wall is nontender. Lungs are clear. CARDIAC: Systolic murmur. No S3 gallop. Regular rhythm. ABDOMEN: Obese. EXTREMITIES: Peripheral pulses are diminished. Right-handed. Fluent speech. Moves all extremities. Her gait is intact. DIAGNOSTIC DATA: The creatinine was 1.7, GFR 29. Hemoglobin was 12, hematocrit 34. White count 8000. Cardiogram on admission showed atrial fibrillation with rapid ventricular response and ST segment depression. She has since converted to sinus rhythm this morning. DISCUSSION: The patient has polyvascular disease and was stable prior to the onset of the atrial fibrillation. She is noted to have a positive stress test. PLAN: We are going to try to control her atrial fibrillation at this time. No catheterization is planned on this admission. MD DUNCAN Rodriguez/russell , 10:52 AM , 11:01 AM YAIR
--- NOTE | 2018-02-06 14:54 | ECHRPT ---
CONCLUSIONS Normal left ventricular size. Wall thickness is normal. The left ventricular systolic function is low normal with an estimated ejection fraction in the rang e of 50- 55%. The left atrial size is mildly dilated. [id number] mitral valve regurgitation. The estimated pulmonary arterial pressure is 26 mmHg. There is mild tricuspid valve regurgitation. BP: / HR: Rhythm: MEASUREMENTS (Male / Female) Normal Values Technical Quality:Very technically difficult study 2D ECHO LV Diastolic Diameter PLAX 4.6 cm 4.2 - 5.9 / 3.9 - 5.3 cm LV Systolic Diameter PLAX 3.6 cm IVS Diastolic Thickness 1.1 cm 0.6 - 1.0 / 0.6 - 0.9 cm LVPW Diastolic Thickness 1.1 cm 0.6 - 1.0 / 0.6 - 0.9 cm LV Relative Wall Thickness 0.5 RV Internal Dim ED PLAX 2.3 cm LVOT Diameter 1.7 cm Aortic Root Diameter 2.3 cm LA Systolic Diameter LX 3.7 cm 3.0 - 4.0 / 2.7 - 3.8 cm M-MODE Aortic Root Diameter MM 2.5 cm LA Systolic Diameter MM 4.3 cm LA Ao Ratio MM 1.7 AV Cusp Separation MM 1.6 cm DOPPLER AV Peak Velocity 111.0 cm/s AV Peak Gradient 4.9 mmHg LVOT Peak Velocity 92.3 cm/s LVOT Peak Gradient 3.4 mmHg AV Area Cont Eq pk 1.9 cm Mitral E Point Velocity 118.0 cm/s Mitral A Point Velocity 94.8 cm/s Mitral E to A Ratio 1.2 LV E' Lateral Velocity 5.0 cm/s Mitral E to LV E' Lateral Ratio 23.7 LV E' Septal Velocity 3.9 cm/s Mitral E to LV E' Septal Ratio 30.3 TR Peak Velocity 200.0 cm/s TR Peak Gradient 16.0 mmHg Right Atrial Pressure 10.0 mmHg Pulmonary Artery Systolic Pressu 26.0 mmHg Right Ventricular Systolic Press 26.0 mmHg PV Peak Velocity 111.0 cm/s PV Peak Gradient 4.9 mmHg FINDINGS LEFT VENTRICLE Normal left ventricular size. Wall thickness is normal. The left ventricular systolic function is low normal with an estimated ejection fraction in the rang e of 50- 55%. RIGHT VENTRICLE Normal right ventricular size and systolic function. LEFT ATRIUM The left atrial size is mildly dilated. RIGHT ATRIUM The right atrial size is normal. ATRIAL SEPTUM Normal atrial septal thickness without atrial level shunting by limited color doppler interrogation. AORTA The aortic root and proximal ascending aorta are normal in size on limited imaging. MITRAL VALVE [id number] mitral valve regurgitation. AORTIC VALVE Trileaflet aortic valve. No aortic valve stenosis or regurgitation. TRICUSPID VALVE The estimated pulmonary arterial pressure is 26 mmHg. There is mild tricuspid valve regurgitation. PULMONARY VALVE No pulmonary valve regurgitation or stenosis. VESSELS The inferior vena cava is normal in size. PERICARDIUM No pericardial effusion. Sanjay Whitney MD, FACC, [facility] [place] (Electronically Signed) Final Date:06 February 2018 14:53
[2018-02-06] MEDS: Amiodarone 200 MG Tablet PO SCH (20:42)
[2018-02-06 23:14] VITALS: O2SAT 98
[2018-02-07] MEDS ORDERED: hydrALAZINE HCl Inj 20 MG/ML Vial IV.PUSH ONE (04:13)
[2018-02-07] MEDS: Acetaminophen 325 MG Tablet PO PRN (04:26)
[2018-02-07] MEDS: Morphine Inj 4 MG/ML Vial IV.PUSH PRN ×2 (05:25→09:32)
[2018-02-07 05:56] LABS: Baso % (Auto) 0.7 % (0.0-2.0); Eos # (Auto) 0.2 th/mm3 (0.0-0.4); Eos % (Auto) 2.4 % (0.0-4.0); Hematocrit 37.5 % (35.0-46.0); Hemoglobin 12.8 gm/dL (11.6-15.3); Lymph # (Auto) 2.3 th/mm3 (1.0-4.8); Lymph % (Auto) 35.4 % (9.0-44.0); Mean Corpuscular HGB Conc 34.2 % (32.0-36.0); Mean Corpuscular Volume 93.8 fL (80.0-100.0); Mean Platelet Volume 9.2 fL (7.0-11.0); Mono # (Auto) 0.5 th/mm3 (0.0-0.9); Mono % (Auto) 7.4 % (0.0-8.0); Neut # (Auto) 3.5 th/mm3 (1.8-7.7); Neut % (Auto) 54.1 % (16.0-70.0); Platelet Count 147 th/mm3 (150-450); Red Blood Count 3.99 mil/mm3 (4.00-5.30); Red Cell Distribution Width 12.9 % (11.6-17.2); White Blood Count 6.4 th/mm3 (4.0-11.0)
[2018-02-07 06:21] LABS: Albumin 3.6 g/dL (3.4-5.0); Anion Gap 6 meq/L (5-15); Aspartate Aminotransferase 26 U/L (15-37); Blood Urea Nitrogen 29 mg/dL (7-18); Carbon Dioxide 26.2 meq/L (21.0-32.0); Chloride 109 meq/L (98-107); Glomerular Filtration Rate 32 mL/min (>89); Glucose,Random 115 mg/dL (74-106); Potassium 3.8 meq/L (3.5-5.1); Sodium 141 meq/L (136-145)
[2018-02-07 06:25] LABS: Alanine Aminotransferase 25 U/L (10-53); Alkaline Phosphatase 96 U/L (45-117); Total Protein 7.3 g/dL (6.4-8.2)
[2018-02-07] MEDS: Insulin NovoLOG Aspart Correctional Sugar Inj SQ SCH (08:07)
--- NOTE | 2018-02-07 09:27 | P.PNCA ---
Subjective Interval history: complains of foot pain left says she saw Dr Kunz and was told it was arthritis and it could be scrapped. Was given steroids for it by PCP in past patient is diabetic. Remains in SR no chest pains. Medications and Allergies Active Medications: Active Medications Acetaminophen (Tylenol) 650 mg PO Q4H PRN PRN Reason: Temp > 100.4 Last Admin: 02/07/18 04:26 Dose: 650 mg Al Hydroxide/Mg Hydroxide (Milk Of Magnesia Liq) 30 ml PO Q12H PRN PRN Reason: Mild Constipation Amiodarone HCl (Cordarone) 200 mg PO Q12HR [facility] Last Admin: 02/06/18 20:42 Dose: 200 mg Apixaban (Eliquis) 2.5 mg PO BID [facility] Last Admin: 02/06/18 20:42 Dose: 2.5 mg Aspirin (Ecotrin) 81 mg PO DAILY [facility] Last Admin: 02/06/18 08:35 Dose: 81 mg Bisacodyl (Dulcolax Supp) 10 mg RECTAL DAILY PRN PRN Reason: SEVERE CONSITIPATION Dextrose (D50w Vial) 50 ml IV.PUSH UNSCH PRN PRN Reason: PER HYPOGLYCEMIA PROTOCOL Glucagon (Glucagon Inj) 1 mg OTHER PRN PRN PRN Reason: for Hypoglycemia Protocol Sodium Chloride (Ns Inj) 1,000 mls @ 100 mls/hr IV.CONT .Q10H [facility] Last Admin: 02/06/18 23:34 Dose: Not Given Diltiazem HCl 125 mg/ Sodium (Chloride) 125 mls @ 5 mls/hr IV.CONT TITRATE PRN ; Protocol PRN Reason: Per Protocol Last Titration: 02/06/18 05:32 Dose: 15 mg/hr, 15 mls/hr Insulin Aspart (Novolog Insulin Correctional Sugar Inj) 0 unit SQ ACHS [facility]; Protocol Last Admin: 02/07/18 08:07 Dose: Not Given Lactulose (Lactulose Liq) 30 ml PO DAILY PRN PRN Reason: SEVERE CONSITIPATION Metoprolol Tartrate (Lopressor) 12.5 mg PO BID [facility] Last Admin: 02/06/18 20:42 Dose: 12.5 mg Miscellaneous (Pill Splitter) 1 each OTHER UNSCH PRN PRN Reason: SEE LABEL COMMENTS Morphine Sulfate (Morphine Inj) 2 mg IV.PUSH Q4H PRN PRN Reason: PAIN 6-10 Last Admin: 02/07/18 05:25 Dose: 2 mg Nitroglycerin (Nitro-Bid 2% Oint) 0.5 inch TOPICAL Q6HR PRN PRN Reason: CHEST PAIN Ondansetron HCl (Zofran Inj) 4 mg IV.PUSH Q6H PRN PRN Reason: NAUSEA OR VOMITING Pravastatin Sodium (Pravachol) 40 mg PO DAILY [facility] Last Admin: 02/06/18 08:35 Dose: 40 mg Senna/Docusate Sodium (Shu-Colace) 1 tab PO BID [facility] Last Admin: 02/06/18 21:59 Dose: Not Given Sennosides (Senokot) 17.2 mg PO Q12H PRN PRN Reason: Moderate Constipation Sodium Chloride (Ns Flush) 2 ml IV.FLUSH UNSCH PRN PRN Reason: FLUSH AFTER USING IV ACCESS Last Admin: 02/06/18 20:43 Dose: 2 ml Allergies Allergy/AdvReac Type Severity Reaction Status Date / Time Iodinated Contrast- Oral and Allergy Intermediate Rash Verified 08/11/17 15:41 IV Dye codeine Allergy Unknown Verified 08/11/17 15:28 Home Medications Medication Instructions Recorded Confirmed Type Plavix 75 mg PO DAILY 02/06/18 02/06/18 History Physical Exam Vital signs: Vital Signs 02/06/18 10:00 02/06/18 11:00 02/06/18 12:00 Temperature 98.2 F Pulse Rate 60 58 L 58 L Respiratory Rate 18 Blood Pressure 159/79 H Pulse Oximetry 02/06/18 13:00 02/06/18 14:00 02/06/18 15:00 Temperature Pulse Rate 58 L 58 L 57 L Respiratory Rate Blood Pressure Pulse Oximetry 02/06/18 16:00 02/06/18 17:00 02/06/18 18:00 Temperature 98.6 F Pulse Rate 70 72 66 Respiratory Rate 18 Blood Pressure 163/83 H Pulse Oximetry 02/06/18 19:00 02/06/18 20:00 02/06/18 21:00 Temperature 98.4 F Pulse Rate 70 80 76 Respiratory Rate 20 Blood Pressure 205/94 H Pulse Oximetry 98 02/06/18 22:00 02/06/18 23:00 02/07/18 00:00 Temperature Pulse Rate 68 62 70 Respiratory Rate 16 Blood Pressure 159/75 H Pulse Oximetry 02/07/18 01:00 02/07/18 02:00 02/07/18 03:00 Temperature Pulse Rate 66 70 68 Respiratory Rate Blood Pressure Pulse Oximetry 02/07/18 04:00 02/07/18 05:00 02/07/18 05:30 Temperature 98.8 F Pulse Rate 74 74 Respiratory Rate 20 Blood Pressure 206/86 H 157/82 H Pulse Oximetry 02/07/18 06:00 02/07/18 07:00 Temperature Pulse Rate 76 68 Respiratory Rate Blood Pressure Pulse Oximetry Intake & Output 02/06/18 02/07/18 02/07/18 18:59 06:59 18:59 Intake Total 1120 / 1120 720 / 720 Output Total 900 / 900 1800 / 1800 Balance 220 / 220 -1080 / -1080 Weight 97.8 kg Intake: IV 400 / 400 NS Inj 1,000 ML @ 100 mls/hr IV 400 / 400 .CONT .Q10H [facility] Rx#:[id number] Oral 720 / 720 720 / 720 Output: Urine 900 / 900 1800 / 1800 Other: # Voids 3 Date of Last Bowel Movement 02/06/18 # Bowel Movements 1 - Additional findings Additional findings: NO JVD carotid bruits present systolic murmur unchanged lungs clear obese motor and sensory intact. Results 02/07/18 05:18 02/07/18 05:18 Cardiac Enzymes 02/06/18 02/06/18 02/06/18 Range/Units 01:20 08:45 13:10 AST 18 (15-37) U/L Troponin I Less than 0.02 L 0.38 H D 0.55 H D (0.02-0.05) ng/mL 02/07/18 Range/Units 05:18 AST 26 (15-37) U/L Troponin I (0.02-0.05) ng/mL Coagulation 02/06/18 02/06/18 Range/Units 01:20 11:07 PT 10.2 (9.8-11.6) sec APTT 27.3 36.6 H D (23.4-31.7) sec CBC 02/06/18 02/07/18 Range/Units 01:20 05:18 WBC 8.0 6.4 (4.0-11.0) th/mm3 RBC 3.73 L 3.99 L (4.00-5.30) mil/mm3 Hgb 12.0 12.8 (11.6-15.3) gm/dL Hct 34.4 L 37.5 (35.0-46.0) % Plt Count 165 147 L (150-450) th/mm3 Neut # (Auto) 5.1 3.5 (1.8-7.7) th/mm3 Lymph # (Auto) 2.2 2.3 (1.0-4.8) th/mm3 [place] # (Auto) 0.6 0.5 (0.0-0.9) th/mm3 Eos # (Auto) 0.1 0.2 (0.0-0.4) th/mm3 Baso # (Auto) 0.1 0.0 (0.0-0.2) th/mm3 Comprehensive Metabolic Panel 02/06/18 02/07/18 Range/Units 01:20 05:18 Sodium 141 141 (136-145) meq/L Potassium 3.5 3.8 (3.5-5.1) meq/L Chloride 108 H 109 H (98-107) meq/L Carbon Dioxide 24.8 26.2 (21.0-32.0) meq/L BUN 30 H 29 H (7-18) mg/dL Creatinine 1.74 H 1.60 H (0.50-1.00) mg/dL Calcium 8.5 9.0 (8.5-10.1) mg/dL AST 18 26 (15-37) U/L ALT 20 25 (10-53) U/L Alkaline Phosphatase 90 96 (45-117) U/L Total Protein 7.0 7.3 (6.4-8.2) g/dL Albumin 3.6 3.6 (3.4-5.0) g/dL Intake and Output 02/06/18 02/07/18 02/07/18 22:59 06:59 14:59 Intake Total 1120 / 1120 720 / 720 Output Total 600 / 600 1800 / 1800 Balance 520 / 520 -1080 / -1080 Intake: IV 400 / 400 NS Inj 1,000 ML @ 100 mls/hr IV 400 / 400 .CONT .Q10H [facility] Rx#:[id number] Oral 720 / 720 720 / 720 Output: Urine 600 / 600 1800 / 1800 Other: # Voids 3 Date of Last Bowel Movement 02/06/18 # Bowel Movements 1 Weight 97.8 kg - Imaging and Cardiology Imaging: Impressions Chest X-Ray 02/06/18 01:18 CONCLUSION: Minimal basilar atelectasis. Assessment and Plan - Assessment (1) Afib Code(s): I48.91 - Unspecified atrial fibrillation Status: Acute - Plan Stable on oral amiodarone and Eliquis OK for discharge she will stop the Plavix I will see her next week in office.
[2018-02-07] MEDS: Senna/Docusate Sodium 8.6/50 MG Tablet PO SCH (09:29)
[2018-02-07] MEDS: Amiodarone 200 MG Tablet PO SCH (09:31)
[2018-02-07] MEDS: Metoprolol Tartrate 25 MG Tablet PO SCH (09:31)
[2018-02-07] MEDS: Sod Chloride 0.9% Inj 1,000 ML IV.CONT SCH (09:33)
--- NOTE | 2018-02-07 10:24 | P.PN ---
Subjective Interval history: Follow-up new onset atrial fibrillation February 07, 2018-patient seen and examined, no chest pain, heart palpitation, dizziness. Rate controlled. BP labile. Cleared for discharge by cardiology Physical Exam Vital signs: Vital Signs 02/06/18 11:00 02/06/18 12:00 02/06/18 13:00 Temperature 98.2 F Pulse Rate 58 L 58 L 58 L Respiratory Rate 18 Blood Pressure 159/79 H Pulse Oximetry 02/06/18 14:00 02/06/18 15:00 02/06/18 16:00 Temperature 98.6 F Pulse Rate 58 L 57 L 70 Respiratory Rate 18 Blood Pressure 163/83 H Pulse Oximetry 02/06/18 17:00 02/06/18 18:00 02/06/18 19:00 Temperature Pulse Rate 72 66 70 Respiratory Rate Blood Pressure Pulse Oximetry 02/06/18 20:00 02/06/18 21:00 02/06/18 22:00 Temperature 98.4 F Pulse Rate 80 76 68 Respiratory Rate 20 Blood Pressure 205/94 H Pulse Oximetry 98 02/06/18 23:00 02/07/18 00:00 02/07/18 01:00 Temperature Pulse Rate 62 70 66 Respiratory Rate 16 Blood Pressure 159/75 H Pulse Oximetry 02/07/18 02:00 02/07/18 03:00 02/07/18 04:00 Temperature 98.8 F Pulse Rate 70 68 74 Respiratory Rate 20 Blood Pressure 206/86 H Pulse Oximetry 02/07/18 05:00 02/07/18 05:30 02/07/18 06:00 Temperature Pulse Rate 74 76 Respiratory Rate Blood Pressure 157/82 H Pulse Oximetry 02/07/18 07:00 Temperature Pulse Rate 68 Respiratory Rate Blood Pressure Pulse Oximetry Intake & Output 02/06/18 02/07/18 02/07/18 18:59 06:59 18:59 Intake Total 1120 / 1120 720 / 720 Output Total 900 / 900 1800 / 1800 Balance 220 / 220 -1080 / -1080 Weight 97.8 kg Intake: IV 400 / 400 NS Inj 1,000 ML @ 100 mls/hr IV 400 / 400 .CONT .Q10H [facility] Rx#:[id number] Oral 720 / 720 720 / 720 Output: Urine 900 / 900 1800 / 1800 Other: # Voids 3 Date of Last Bowel Movement 02/06/18 # Bowel Movements 1 Narrative: GENERAL: NAD SKIN: Warm and dry. HEAD: Atraumatic. Normocephalic. EYES: Pupils equal and round. No scleral icterus. No injection or drainage. ENT: No nasal bleeding or discharge. Mucous membranes pink and moist. NECK: Trachea midline. No JVD. CARDIOVASCULAR: Irregular regular rate and rhythm. No murmur RESPIRATORY: No accessory muscle use. Clear to auscultation. Breath sounds equal bilaterally. GASTROINTESTINAL: Abdomen soft, non-tender, nondistended. Hepatic and splenic margins not palpable. MUSCULOSKELETAL: Extremities without clubbing, cyanosis, or edema. No obvious deformities. NEUROLOGICAL: Awake and alert. No obvious cranial nerve deficits. Motor grossly within normal limits. Five out of 5 muscle strength in the arms and legs. Normal speech. PSYCHIATRIC: Appropriate mood and affect; insight and judgment normal. Results - Labs CBC & Chem 7: 02/07/18 05:18 02/07/18 05:18 Laboratory Results - last 24 hr 02/06/18 02/06/18 02/06/18 11:07 12:18 13:10 WBC RBC Hgb Hct MCV MCH MCHC RDW Plt Count MPV Neut % (Auto) Lymph % (Auto) [place] % (Auto) Eos % (Auto) Baso % (Auto) Neut # (Auto) Lymph # (Auto) [place] # (Auto) Eos # (Auto) Baso # (Auto) WBC Differential Differential Comment APTT 36.6 H D Sodium Potassium Chloride Carbon Dioxide Anion Gap BUN Creatinine Estimated GFR POC Glucose 118 H Random Glucose Calcium Total Bilirubin AST ALT Alkaline Phosphatase Troponin I 0.55 H D Total Protein Albumin 02/06/18 02/06/18 02/07/18 17:22 21:20 05:18 WBC 6.4 RBC 3.99 L Hgb 12.8 Hct 37.5 MCV 93.8 MCH 32.0 MCHC 34.2 RDW 12.9 Plt Count 147 L MPV 9.2 Neut % (Auto) 54.1 Lymph % (Auto) 35.4 [place] % (Auto) 7.4 Eos % (Auto) 2.4 Baso % (Auto) 0.7 Neut # (Auto) 3.5 Lymph # (Auto) 2.3 [place] # (Auto) 0.5 Eos # (Auto) 0.2 Baso # (Auto) 0.0 WBC Differential . Differential Comment Auto diff final APTT Sodium Potassium Chloride Carbon Dioxide Anion Gap BUN Creatinine Estimated GFR POC Glucose 190 H 131 H Random Glucose Calcium Total Bilirubin AST ALT Alkaline Phosphatase Troponin I Total Protein Albumin 02/07/18 02/07/18 05:18 08:06 WBC RBC Hgb Hct MCV MCH MCHC RDW Plt Count MPV Neut % (Auto) Lymph % (Auto) [place] % (Auto) Eos % (Auto) Baso % (Auto) Neut # (Auto) Lymph # (Auto) [place] # (Auto) Eos # (Auto) Baso # (Auto) WBC Differential Differential Comment APTT Sodium 141 Potassium 3.8 Chloride 109 H Carbon Dioxide 26.2 Anion Gap 6 BUN 29 H Creatinine 1.60 H Estimated GFR 32 L POC Glucose 122 H Random Glucose 115 H Calcium 9.0 Total Bilirubin 0.3 AST 26 ALT 25 Alkaline Phosphatase 96 Troponin I Total Protein 7.3 Albumin 3.6 - Procedures None Assessment and Plan - Assessment (1) Afib Code(s): I48.91 - Unspecified atrial fibrillation Status: Acute (2) ACS (acute coronary syndrome) Code(s): I24.9 - Acute ischemic heart disease, unspecified Status: Acute (3) Renal insufficiency Code(s): N28.9 - Disorder of kidney and ureter, unspecified Status: Acute (4) DM (diabetes mellitus) Code(s): E11.9 - Type 2 diabetes mellitus without complications Status: Acute - Plan 72-year-old female with 1. ACS: ACS ruled out per protocol serial cardiac enzyme and EKGs NTG/Morphine prn, ASA, Statin, B-mary beth. Heparin gtt discontinued and patient currently on Eliquis 2. A-fib: w/ RVR, New-Onset, s/p Cardizem 20mg IV x1 by EMS w/ HR now 80-90's. Rate controlled on amiodarone, Eliquis per cardiology 2D echo with EF of 50-55% 3. Renal Insufficiency: Creatinine 1.74, no previous labs for comparison, Renal indices improved with IVF for hydration 4. DM: Sliding scale w/ Accu-Cheks. Hgb A1c pending 5. DVT Prophylaxis: Eliquis Discharge patient to home Condition on discharge: Improved Regular Diet as tolerated Ad Nora activity Rx written:see EMR Follow-up with primary care physician Cardiology in 1 week
[2018-02-07 10:47] VITALS: BP 160/88; RESP 18; TEMP 97.9
[2018-02-07 11:31] VITALS: PULSE 67
[2018-02-07 13:16] LABS: Hemoglobin A1c 6.4 % (4.3-6.0)
== END 2018-02-07 11:38 | disposition home or self-care (01) ==
LOC: NEPC 01:11 → NEDA 03:18 → HCIS 09:22
PROVIDERS: ADMIT Hospitalist; ATTEND Hospitalist